=== PATIENT | male | born 1960 | race Caucasian/White ===

== ENCOUNTER → 2020-04-26 | Outpatient (CLI) | payer OTHER ==
--- NOTE | 2020-04-26 14:12 | RAD ---
DATE: 04/26/2020 1:22 PM EXAM: DIGITAL DIAGNOSTIC BILATERAL HISTORY: 60-year-old man with a palpable lump in the lateral periareolar right breast over the past 2 weeks. He began a new blood pressure medication 1 1/2 weeks ago and reports severe blunt trauma to the right chest a month ago. There is a family history of breast cancer in mother in her 70s. COMPARISON: None. This is a baseline. Bilateral full field craniocaudal and mediolateral oblique images were obtained using digital technique. FINDINGS: Breast Density: FATTY The Breast Parenchyma is primarily fatty replaced. Breast parenchyma level density A. Flame-shaped subareolar right breast density compatible with benign gynecomastia is present. The BB marker on the superolateral aspect of the right nipple overlies normal subcutaneous fat. No architectural distortion, dominant mass or suspicious calcifications are apparent. Normal skin thickness. No nipple retraction or mammographic deformity. Left mammogram is negative. IMPRESSION: No mammographic evidence of malignancy. BI-RADS CATEGORY: 2 BENIGN FINDING(S) RECOMMENDED FOLLOW-UP: CLIN FOLLOW UP IMAGING CLINICALLY INDICATED Recommend clinical management which may include biopsy if there are any clinically suspicious findings. In the absence of any clinically suspicious findings, routine health maintenance and clinical follow-up is recommended. Discussed with the patient. Mammography is a sensitive method for finding small breast cancers, but it does not detect them all and is not a substitute for careful clinical examination. A negative mammogram does not negate a clinically suspicious finding and should not result in delay in biopsying a clinically suspicious abnormality. "Our facility is accredited by the [employer] Mammography Program."
== END | disposition home or self-care (01) ==
LOC: MAMMO 13:06
PROVIDERS: ATTEND Nurse Practitioner Family
DX: R92.2 Inconclusive mammogram (principal); N63.0 Unspecified lump in unspecified breast; Z80.3 Family history of malignant neoplasm of breast
CPT/HCPCS: 77066

== ENCOUNTER → 2021-08-31 | Outpatient (CLI) | payer OTHER ==
--- NOTE | 2021-08-31 12:16 | KCIC ---
EXAM: Lumbar spine, 5 views. HISTORY: Pain. COMPARISON: None. FINDINGS: 5 views of the lumbar spine are obtained. There is moderate rotatory levoscoliosis of the l umbar spine centered at L2. There is minimal retrolisthesis at the upper lumbar levels. There is mult ilevel endplate remodeling and disc space narrowing. There is facet arthropathy predominantly at the lower lumbar levels. IMPRESSION: 1. Rotatory lumbar levoscoliosis. 2. Multilevel degenerative change. 3. No acute osseous finding. Electronically signed by: Eunice Blunt MD (08/31/2021 12:13 PM) [id number]
== END ==
LOC: KCIC 10:19
PROVIDERS: ATTEND Nurse Practitioner Family
DX: M47.816 Spondylosis without myelopathy or radiculopathy, lumbar region (principal); M48.8X6 Other specified spondylopathies, lumbar region; M48.061 Spinal stenosis, lumbar region without neurogenic claudication; M41.86 Other forms of scoliosis, lumbar region; Z68.24 Body mass index [BMI] 24.0-24.9, adult
CPT/HCPCS: 72110

== ENCOUNTER → 2021-09-08 | Outpatient (CLI) | payer OTHER ==
--- NOTE | 2021-09-08 16:56 | KCIC ---
EXAMINATION: Magnetic resonance imaging (MRI) of the lumbar spine without contrast 09/08/2021 1:15 PM HISTORY: Lumbar pain. TECHNIQUE: Multiplanar multi-weighted MRI of the lumbar spine was performed without intravenous contr ast using the standard lumbar spine protocol. Contrast information: None administered. COMPARISON: None available. FINDINGS: There is 3 mm retrolisthesis of L1 on L2 and L2 on L3. Mild disc height loss at L1-L2 and L2-L3. Mild disc height loss at L4-L5. Disc desiccation is identified all levels of lumbar spine. Vertebral bodi es demonstrate normal signal intensity on all sequences. There are no compression fractures. The co nus medullaris terminates at the level of L1. The distal spinal cord signal intensity is normal. Collazo ited views of the abdomen and pelvis show no soft tissue abnormality. The aorta is normal. L1-L2: There is a disc bulge asymmetric to the left with left far lateral disc protrusion. No signifi cant facet arthropathy. Mild left neuroforaminal stenosis. No spinal canal stenosis. L2-L3: There is a circumferential disc bulge. There is a right foraminal disc protrusion. No signific ant facet arthropathy. Mild/moderate right and mild left neuroforaminal stenosis. Mild spinal canal s tenosis. L3-L4: Mild disc bulge. Mild facet arthropathy. Mild left neural foraminal stenosis. No significant s mat canal stenosis. L4-L5: There is a circumferential disc bulge. Mild facet arthropathy. Mild left neural foraminal sten osis. Mild spinal canal stenosis. L5-S1: Mild disc bulge. There is a central disc protrusion. Mild facet arthropathy. Mild left neural foraminal stenosis. No spinal canal stenosis. IMPRESSION: Mild degenerative changes of the lumbar spine as described in detail above. Electronically signed by: Holly Wilson MD (09/08/2021 4:53 PM) [id number]
== END ==
LOC: KCIC MRI 12:48
PROVIDERS: ATTEND Nurse Practitioner Family
DX: M47.816 Spondylosis without myelopathy or radiculopathy, lumbar region (principal); M48.07 Spinal stenosis, lumbosacral region; M51.27 Other intervertebral disc displacement, lumbosacral region; M48.8X7 Other specified spondylopathies, lumbosacral region; M51.36 Other intervertebral disc degeneration, lumbar region
CPT/HCPCS: 72148

== ENCOUNTER → 2021-10-18 | Outpatient (CLI) | payer OTHER ==
--- NOTE | 2021-10-18 12:24 | KCIC ---
EXAM: Bilateral hands, 3 views. HISTORY: Pain. COMPARISON: None. FINDINGS: 3 views of both hands are obtained. There is no fracture, dislocation or subluxation. There is a suspected small cyst within the right scaphoid. There is a suspected tiny bone island within th e distal right radius. There is moderate right first carpometacarpal joint space narrowing with subch ondral sclerosis and marginal spurring. There is mild right first interphalangeal joint spurring with a small chronic fragmented spur. There is also a tiny chronic ossicle adjacent to the ulnar aspect o f the third proximal interphalangeal joint. There are degenerative subchondral cyst and there is a sp ur involving the right third metacarpal head. There is left triscaphe joint space narrowing and subch ondral sclerosis. IMPRESSION: 1. Moderate right first carpometacarpal joint and mild right first interphalangeal joint osteoarthrit is. 2. Degenerative age involving the right third metacarpal head and right scaphoid. 3. Mild left triscaphe joint osteoarthritis. Electronically signed by: Eunice Blunt MD (10/18/2021 12:21 PM) [id number]
--- NOTE | 2021-10-18 12:49 | KCIC ---
EXAM: Cervical spine, 3 views. HISTORY: Pain. COMPARISON: None. FINDINGS: 3 views of the cervical spine are obtained. There is minimal anterolisthesis of C4 on C5. T here is degenerative endplate remodeling with disc space narrowing and osteophytosis at C6-C7, and to a lesser extent, C5-C6. There is multilevel facet arthropathy. IMPRESSION: 1. Multilevel degenerative change, primarily at C6-C7. 2. No acute osseous finding. Electronically signed by: Eunice Blunt MD (10/18/2021 12:46 PM) [id number]
== END ==
LOC: KCIC 11:30
PROVIDERS: ATTEND Nurse Practitioner Family
DX: M47.812 Spondylosis without myelopathy or radiculopathy, cervical region (principal); M48.02 Spinal stenosis, cervical region; M48.8X2 Other specified spondylopathies, cervical region; M19.041 Primary osteoarthritis, right hand; M19.042 Primary osteoarthritis, left hand; M25.841 Other specified joint disorders, right hand; M25.842 Other specified joint disorders, left hand
CPT/HCPCS: 72040; 73130-50